=== PATIENT | male | born 1965 | race Hispanic/Latino ===

== ENCOUNTER → 2020-03-27 | Day surgery (SDC) | payer BC, OTHER ==
[~2020-03-27] MED LIST: FENTANYL CITRATE/PF 100MCG/2 ML INJ ONE; GLUCAGON FOR INJ 1 MG VIAL ONE; HYOSCYAMINE 0.125 MG TAB ONE; LIDOCAINE HCL 2% LOCAL INJ 5 ML SDV VIAL INJ ONE; MIDAZOLAM HCL 2 MG/2 ML VIAL ONE; PROPOFOL IV EMULSION 10 MG/ML 20 ML VIAL ONE
[2020-03-27 14:00] VITALS: BP 144/91
--- NOTE | 2020-03-27 18:09 | Operative Report ---
DATE OF PROCEDURE: 03/27/2020 SURGEON: Thomas Bermeo MD PROCEDURE: Colonoscopy with polypectomy. INDICATION FOR PROCEDURE: Colorectal cancer screening. MEDICATIONS: The patient was done under MAC, please see anesthesiologist's note. PROCEDURE IN DETAIL: With the patient in the left lateral decubitus position, the flexible fiberoptic Olympus colonoscope was inserted into the rectum with ease and advanced all the way to the cecum. It was then withdrawn slowly, mucosa overlying the cecum appeared to be within normal limits. A minute polyp was removed per the cold biopsy forceps from the ascending colon. The transverse and descending appeared to be within normal limits. A single diverticulum was noted in the sigmoid colon. The rectum appeared to be within normal limits. The scope was then retroflexed into the distal rectum and small internal hemorrhoids were noted, none of which was actively bleeding. The scope was then straightened out, it was subsequently withdrawn, and the patient tolerated the procedure well. IMPRESSION: 1. Ascending colon polyp, cold biopsied. 2. Single diverticulum, sigmoid colon. 3. Internal hemorrhoids, none actively bleeding. PLAN: Follow up histology. Initiate high-fiber, low-fat diet. Initiate high-fiber supplement. The patient might benefit from a followup colonoscopy in 3 to 5 years. Thomas Bermeo MD [facility] [place] [facility] [place][id number] cc: Nicki Figueredo MD
== END | disposition home or self-care (01) ==
LOC: OR 10:18
PROVIDERS: ATTEND Internal Medicine Gastroenterology
DX: Z12.11 Encounter for screening for malignant neoplasm of colon (principal); D12.2 Benign neoplasm of ascending colon; K57.30 Diverticulosis of large intestine without perforation or abscess without bleeding; K64.8 Other hemorrhoids; R03.0 Elevated blood-pressure reading, without diagnosis of hypertension; Z01.810 Encounter for preprocedural cardiovascular examination; Z01.812 Encounter for preprocedural laboratory examination; Z11.59 Encounter for screening for other viral diseases; Z68.33 Body mass index [BMI] 33.0-33.9, adult
CPT/HCPCS: 45380; 93005; J1610; J2001; J2250; J2704; J3010; U0002; 45378; 45384

== ENCOUNTER → 2020-07-22 | Outpatient (CLI) | payer BC ==
[~2020-07-22] MED LIST changes: -FENTANYL CITRATE/PF 100MCG/2 ML INJ ONE; -GLUCAGON FOR INJ 1 MG VIAL ONE; -HYOSCYAMINE 0.125 MG TAB ONE; +IOPAMIDOL 370 MG/ML 200 ML INFUS..BTL INJ ONE; -LIDOCAINE HCL 2% LOCAL INJ 5 ML SDV VIAL INJ ONE; -MIDAZOLAM HCL 2 MG/2 ML VIAL ONE; -PROPOFOL IV EMULSION 10 MG/ML 20 ML VIAL ONE; +SODIUM CHLORIDE 0.9% 50ML 50 ML ONE
== END ==
LOC: CT 14:19
PROVIDERS: ATTEND Internal Medicine Gastroenterology
DX: R10.30 Lower abdominal pain, unspecified (principal)
CPT/HCPCS: 74177; Q9967